=== PATIENT | female | born 1955 | race Caucasian/White ===

== ENCOUNTER → 2017-01-03 | Outpatient (CLI) | payer OTHER ==
--- NOTE | 2017-01-03 16:48 | CARD ---
APPROVED REPORT EXAM: Two-dimensional and M-mode echocardiogram with Doppler and color Doppler. Other Information Quality : GoodHR: 63bpm Rhythm : NSR INDICATION A fib RISK FACTORS Smoking 2D DIMENSIONS RVDd2.7 (2.9-3.5cm)Left Atrium(2D)3.6 (1.6-4.0cm) IVSd0.8 (0.7-1.1cm)Aortic Root(2D)2.9 (2.0-3.7cm) LVDd4.7 (3.9-5.9cm)LVOT Diameter2.3 (1.8-2.4cm) PWd0.9 (0.7-1.1cm)LVDs3.3 (2.5-4.0cm) FS (%) 30.9 %SV60.8 ml LVEF(%)58.5 (>50%) Aortic Valve AoV Peak Jose.152.5cm/sAoV VTI32.4cm AO Peak GR.9.3mmHgLVOT Peak Jose.108.3cm/s AO Mean GR.4mmHgAVA (VMAX)2.87cm2 Mitral Valve MV E Efdfhqtl15.1cm/sMV E Peak Gr.3mmHg MV DECEL ISIF554biRO A Hnbpbuxn41.8cm/s MV E Mean Gr.1mmHgE/A Ratio0.8 MV A Wdmjetlt42sm Pulmonary Valve PV Peak Zxcmlape038.0cm/s Tricuspid Valve TR P. Tmtfpqtr065lk/sTR Peak Gr.37mmHg Pulmonary Vein S1 Ecgebomy98.5cm/sD2 Ibhqdudz36.1cm/s PVa [id number] LEFT VENTRICLE The left ventricle is normal size. There is normal left ventricular wall thickness. The left ventricu lar systolic function is normal. The Ejection Fraction is 55-60%. There is normal LV segmental wall m otion. Transmitral Doppler flow pattern is Grade I-abnormal relaxation pattern. RIGHT VENTRICLE The right ventricle is normal size. There is normal right ventricular wall thickness. The right ventr icular systolic function is normal. ATRIA The left atrium size is normal. The right atrium size is normal. The interatrial septum is intact wit h no evidence for an atrial septal defect or patent foramen ovale as noted on 2-D or Doppler imaging. AORTIC VALVE The aortic valve is mildly sclerotic. Doppler and Color Flow revealed no significant aortic regurgita tion. There is no significant aortic valvular stenosis. MITRAL VALVE The mitral valve is normal in structure and function. There is no evidence of mitral valve prolapse. There is no mitral valve stenosis. Doppler and Color Flow revealed trace mitral regurgitation. TRICUSPID VALVE Doppler and Color Flow revealed trace tricuspid regurgitation. The pulmonary artery systolic pressure is estimated at 40 mmHg. There is mild pulmonary hypertension. PULMONIC VALVE The pulmonary valve is normal in structure and function. Doppler and Color Flow revealed no pulmonic valvular regurgitation. There is no pulmonic valvular stenosis. GREAT VESSELS The aortic root is normal in size. The ascending aorta is normal in size. The pulmonary artery is nor mal. The IVC is normal in size and collapses >50% with inspiration. PERICARDIAL EFFUSION There is no evidence of significant pericardial effusion. Critical Notification Critical Value: No <Conclusion> The left ventricular systolic function is normal. The Ejection Fraction is 55-60%. There is normal LV segmental wall motion. Transmitral Doppler flow pattern is Grade I-abnormal relaxation pattern. Trace mitral regurgitation. Trace tricuspid regurgitation. The pulmonary artery systolic pressure is estimated at 40 mmHg. There is no evidence of significant pericardial effusion.
== END | disposition home or self-care (01) ==
LOC: ECHO 07:45
PROVIDERS: ATTEND Internal Medicine Cardiovascular Disease
DX: I48.0 Paroxysmal atrial fibrillation (principal); I34.0 Nonrheumatic mitral (valve) insufficiency; I27.2 Other secondary pulmonary hypertension
CPT/HCPCS: 93306

== ENCOUNTER → 2019-01-29 | Outpatient (CLI) | payer OTHER ==
--- NOTE | 2019-01-29 16:26 | PCVCIMAG ---
EXAM: VENOUS DUPLEX RIGHT ARM INDICATION: Leg pain and swelling. Recent shoulder surgery. FINDINGS: Right arm: No thrombus in the internal jugular vein, subclavian vein, axillary vein, basilic vein, or cephalic vein. In the mid brachial vein is an area of nonocclusive chronic appearing thrombus/scarring. IMPRESSION: Nonocclusive chronic appearing thrombus/scarring mid right brachial vein. Venous duplex right arm otherwise unremarkable. No convincing evidence of acute or subacute venous thrombus identified. LOC:[id number]
== END | disposition home or self-care (01) ==
LOC: PCVCIMAG 14:55
PROVIDERS: ATTEND Orthopaedic Surgery Sports Medicine
DX: M79.89 Other specified soft tissue disorders (principal); M79.601 Pain in right arm; M79.606 Pain in leg, unspecified; Z87.891 Personal history of nicotine dependence; Z88.8 Allergy status to other drugs, medicaments and biological substances
CPT/HCPCS: 93971

== ENCOUNTER → 2021-01-11 | Outpatient (CLI) | payer OTHER ==
[~2021-01-11] MED LIST: GADOTERATE 7.5 MMOL/15ML VIAL. IVP ONE
--- NOTE | 2021-01-11 09:55 | KCIC ---
MRI BRAIN WO+W Date: 01/11/2021 8:06 AM Indication: Reason: DISTURBED SENSE OF SMELL / Spl. Instructions: 10cc Clariscan / History: Pt state s she has a sense of odd smells since having the COVID vaccine 10/27 Comparison: None. Technique: Multiplanar multisequence MRI of the brain was performed with and without intravenous cont rast using the standard protocol. 10 cc Clariscan contrast was administered intravenously during the exam. Findings: No acute infarct. No acute or chronic hemorrhage. The ventricles are normal in size and configuration without hydrocephalus. Mild scattered FLAIR hyperintensities in the subcortical and periventricular deep white matter, a nonspecific finding, most commonly seen with chronic small vessel ischemic disea se. No abnormal enhancement. The scalp and calvarium are normal. The pituitary and sella are normal. No Chiari malformation. The v isualized upper cervical spine is normal. The visualized orbits and globes are normal. The visualized paranasal sinuses are clear. The mastoid air cells are clear. Normal flow voids within the vertebral, basilar, and internal carotid arteries indicating patency. IMPRESSION: 1. No acute infarct or hemorrhage. No mass or abnormal enhancement. 2. Mild scattered FLAIR hyperintensities in the subcortical and periventricular deep white matter, a nonspecific finding, most commonly seen with chronic small vessel ischemic disease. Electronically signed by: Gary Morton MD (01/11/2021 9:53 AM) [id number]
== END ==
LOC: KCIC MRI 07:58
PROVIDERS: ATTEND Nurse Practitioner
DX: I67.82 Cerebral ischemia (principal); R43.9 Unspecified disturbances of smell and taste; Z82.0 Family history of epilepsy and other diseases of the nervous system
CPT/HCPCS: 70553; A9575

== ENCOUNTER → 2021-03-23 | Outpatient (CLI) | payer OTHER ==
[~2021-03-23] MED LIST changes: -GADOTERATE 7.5 MMOL/15ML VIAL. IVP ONE; +IOHEXOL 300 MG/ML 100ML VIAL. IV ONE
--- NOTE | 2021-03-24 08:33 | RAD ---
PQRS Compliance Statement: One or more of the following individualized dose reduction techniques were utilized for this examinat ion: 1. Automated exposure control 2. Adjustment of the mA and/or kV according to patient size 3. Use of iterative reconstruction technique CT CHEST+ABD+PELVIS W 03/23/2021 3:18 PM INDICATION: Weight loss COMPARISON: None available TECHNIQUE: Multiple axial CT images of the chest, abdomen and pelvis were obtained after the intraven ous administration of 75 mL Omnipaque 300. Coronal and sagittal reformats are provided. FINDINGS: There is a right thyroid nodule measuring 1.1 cm (series 2, image 4). Heart size is within normal shahid its. Thoracic aorta is normal in course and caliber. There is no pericardial effusion. No pathologica lly enlarged thoracic lymph nodes. There is a spiculated subpleural solid noncalcified nodular opacit y along the medial aspect of the right lower lobe at the costophrenic angle measuring 1.3 x 1.0 cm (s eries 2, image 47). No pleural effusions component vascular congestion or pneumothorax. There is a 6 moment hypodensity along the lateral segment left hepatic lobe (series 4, image 22) whic h is too small to characterize, however statistically favored represent benign etiology such as a sim ple cyst or hemangioma. Spleen, adrenal glands, pancreas and gallbladder are normal in appearance. Th ere is tortuosity of the abdominal aorta secondary to scoliosis. Mild calcified atheromatous plaque. Abdominal aorta is normal in caliber. No free fluid or free intraperitoneal air. A loop of bowel is s uspected coursing anterior to the inferior right hepatic lobe, possibly representing the appendix. Small large bowel are normal in caliber. No bowel obstruction or inflammation. Stomach is normal. The kidneys enhance symmetrically. There is no suspicious renal mass. There is no hydronephrosis. The re are no suspected calculi within the kidneys, ureters or urinary bladder. Urinary bladder is within normal limits given degree of distention. Suspicious pelvic mass. No suspicious adnexal mass. There is levoconvex scoliosis of the thoracic spine. There is dextroconvex scoliosis of the thoracolumbar s pine. No lytic or blastic osseous lesion is identified. IMPRESSION: 1. Spiculated subpleural nodular opacity along the medial aspect of the right lung base measures 1.3 x 1.0 cm. Findings may be infectious/inflammatory, although malignant etiology remains a differential consideration given patient's history. Correlate with underlying risk factors. Further evaluation wi th PET/CT or tissue sampling could be of benefit versus follow-up [address] 2. 1.1 cm right thyroid nodule. Nonemergent thyroid ultrasound could be of benefit. 3. Appendix courses ventral to the inferior right hepatic lobe, not inflamed. No bowel obstruction. M oderate stool noted throughout the colon. 4. Indeterminate 6 mm hypodensity within the lateral segment left hepatic lobe, statistically favored represent benign etiology such as a simple cyst or hemangioma. Electronically signed by: Kerri Guillen MD (03/24/2021 8:31 AM) [id number]
== END ==
LOC: CT 15:18
PROVIDERS: ATTEND Nurse Practitioner
DX: E04.1 Nontoxic single thyroid nodule (principal); R63.4 Abnormal weight loss
CPT/HCPCS: 71260; 74177; Q9967

== ENCOUNTER → 2021-04-21 | Outpatient (CLI) | payer OTHER ==
--- NOTE | 2021-04-24 14:14 | RAD ---
EXAM: PET/CT SCAN INDICATION: Pulmonary nodule COMPARISON: CT chest abdomen pelvis 03/23/2021 PET/CT SCAN TECHNIQUE: Approximately 60 minutes after the intravenous administration of 16.76millicur ies of F-18 fluorodeoxyglucose (FDG), PET imaging of the body from the base of the skull through the mid thighs was performed. Reconstruction in all 3 planes were performed. The patient's serum glucose level at the time of the F-18 FDG administration was 91 mg/dL. A noncontrast CT scan was obtained for attenuation correction and anatomic localization purposes only and is not considered a diagnostic CT scan. PQRS compliance Statement One or more of the following individualized dose reduction techniques were utilized for this study: 1. Automated exposure control 2. Adjustment of the mA and/or kV according to patient size 3. Use of iterative reconstruction technique FINDINGS: Mediastinum SUV max: 2.15 Liver SUV max: 2.57 HEAD AND NECK: No abnormal FDG uptake. No lymphadenopathy. CHEST: No abnormal FDG uptake. No FDG uptake above background in the subpleural nodular opacity in th e posterior basal segment of the right right lower lobe (SUV max 1.98). No lymphadenopathy. The heart is normal in size. There is mild calcified atherosclerosis in the thoracic aorta. ABDOMEN AND PELVIS: No abnormal FDG uptake. There is visualized. Increased uptake in the liver, splee n, kidneys, and bladder. No lymphadenopathy. Bilateral extrarenal pelvis disease. Mild scattered calc ified aortic atherosclerosis. MUSCULOSKELETAL: No suspicious FDG uptake. Degenerative FDG uptake in the rotator cuffs. There is sev ere dextroscoliosis of the thoracolumbar junction. IMPRESSION: No FDG uptake above background in the subpleural nodule in the right lower lobe. Consider follow-up CT CT chest in 3 months to ensure stability. Electronically signed by: Maddie Doe MD (04/24/2021 2:12 PM) [id number]
== END ==
LOC: PETSC 15:32
PROVIDERS: ATTEND Nurse Practitioner
DX: R91.1 Solitary pulmonary nodule (principal)
CPT/HCPCS: 78815; A9552

== ENCOUNTER → 2021-11-10 | Outpatient (CLI) | payer MEDICARE ==
--- NOTE | 2021-11-10 14:27 | RAD ---
EXAM: CT CHEST WITHOUT CONTRAST HISTORY: Lung nodule COMPARISON: CT chest 03/23/2021 TECHNIQUE: Helical CT of the chest performed without contrast. Coronal and sagittal reformats were o btained. One or more of the following individualized dose reduction techniques were utilized for this examinat ion: 1. Automated exposure control 2. Adjustment of the mA and/or kV according to patient size 3. Use of iterative reconstruction technique. FINDINGS: Thyroid gland and thoracic inlet: Thyroid gland is unremarkable. Heart and great vessels: The heart is normal in size. There are coronary artery calcifications. Thora cic aorta is normal in caliber. Mediastinum and alena: No lymphadenopathy. Lungs and pleura: Unchanged linear nodular opacity at the posterior medial right lung base of the nod ular component measuring up to 1.3 cm and more linear opacities extending anteriorly and posteriorly. This is most likely atelectasis or scarring. No new pulmonary nodule. No pleural effusion. Chest wall and axillae: No axillary lymphadenopathy. Breast tissue is unremarkable. Upper abdomen: Unremarkable. Bones: There is severe thoracolumbar dextroscoliosis. IMPRESSION: Unchanged linear nodular opacity in the posterior medial right lung with a nodular compo nent measuring 1.3 cm. This is likely atelectasis or scarring related to the patient's adjacent scoli osis. Consider CT of the chest in 6 months to ensure stability. Electronically signed by: Maddie Doe MD (11/10/2021 2:25 PM) [facility]
== END ==
LOC: CT 13:07
PROVIDERS: ATTEND Pediatrics
DX: R91.1 Solitary pulmonary nodule (principal); I25.10 Atherosclerotic heart disease of native coronary artery without angina pectoris
CPT/HCPCS: 71250